=== PATIENT | female | born 1945 | race Caucasian/White ===

== ENCOUNTER → 2016-12-03 | Outpatient (CLI) | payer OTHER, MEDICARE | LOC: BMCIMAGING 12:11 | PROVIDERS: ATTEND Internal Medicine Rheumatology | DX: R07.81 Pleurodynia (principal); S22.42XD Multiple fractures of ribs, left side, subsequent encounter for fracture with routine healing; W19.XXXA Unspecified fall, initial encounter | CPT/HCPCS: 71101-PO ==

== ENCOUNTER → 2016-12-29 | Outpatient (CLI) | payer OTHER, MEDICARE | LOC: FIMAGING 12:08 | PROVIDERS: ATTEND Physician Assistant | DX: Z47.89 Encounter for other orthopedic aftercare (principal); Z98.1 Arthrodesis status ==

== ENCOUNTER → 2017-12-31 | Outpatient (CLI) | payer OTHER, MEDICARE | LOC: FIMAGING 12:06 | PROVIDERS: ATTEND Physician Assistant | DX: Z09 Encounter for follow-up examination after completed treatment for conditions other than malignant neoplasm (principal); Z98.1 Arthrodesis status ==

== ENCOUNTER → 2018-06-21 | Outpatient (CLI) | payer OTHER, MEDICARE | LOC: BMCIMAGING 10:33 | PROVIDERS: ATTEND Internal Medicine | DX: M53.3 Sacrococcygeal disorders, not elsewhere classified (principal); M51.37 Other intervertebral disc degeneration, lumbosacral region; Z96.643 Presence of artificial hip joint, bilateral ==

== ENCOUNTER → 2018-12-02 | Outpatient (CLI) | payer OTHER, MEDICARE | LOC: FIMAGING 10:32 | PROVIDERS: ATTEND Internal Medicine Nephrology | DX: N18.3 Chronic kidney disease, stage 3 (moderate) (principal); R93.421 Abnormal radiologic findings on diagnostic imaging of right kidney ==

== ENCOUNTER → 2018-12-26 | Outpatient (CLI) | payer OTHER, MEDICARE | LOC: FIMAGING 10:39 | PROVIDERS: ATTEND Physician Assistant | DX: Z98.1 Arthrodesis status (principal) ==